=== PATIENT | male | born 1965 | race Caucasian/White ===

== ENCOUNTER 2017-02-07 10:37 | Emergency (ER) | payer OTHER, BC ==
[~2017-02-07] VITALS: Ht 182.9 cm; Wt 81.6 kg
[~2017-02-07 10:37] MED LIST: AMLODIPINE10 MG PO; DULOXETINE 30MG30 MG FT; KEFLEX500 M1 PO; LEVITRA20 MG PO; MELOXICAM15 MG PO; PRINIVIL10 MG PO; ZOCOR20 MG PO
--- OUTSIDE RECORDS SUMMARY | 2017-02-07 10:54 | External Medical Summary Rpt ---
Author Author KANDIS Watkins, KANDIS Watkins Organization [employer] Address Unknown Phone Unavailable
--- OUTSIDE RECORDS SUMMARY | 2017-02-07 10:54 | External Medical Summary Rpt | CCD ---
Author Author , KANDIS MARQUIS Address Unknown Phone [email or web address] Purpose Continuity of Care Document - through 2016 Problems Code Diagnosis DOS Provider Status G40.909 Epilepsy, unspecified , not intractable , without status epilepticus
--- OUTSIDE RECORDS SUMMARY | 2017-02-07 10:54 | External Medical Summary Rpt | CCD ---
Author Author , KANDIS MARQUIS Address Unknown Phone [email or web address] Purpose Continuity of Care Document - through 2016 Problems Code Diagnosis DOS Provider Status G40.909 Epilepsy, unspecified , not intractable , without status epilepticus
--- OUTSIDE RECORDS SUMMARY | 2017-02-07 10:54 | External Medical Summary Rpt | CCD ---
Author Author [employer] Organization [employer] Address Unknown Phone Unavailable Purpose Continuity of Care Document - through 2016
--- OUTSIDE RECORDS SUMMARY | 2017-02-07 10:54 | External Medical Summary Rpt | CCD ---
Author Author , KANDIS MARQUIS Address Unknown Phone [email or web address] Immunization Name Date Rout CVX Reac Dose Comm Prov Is Faci e tion ent ider Refu lity Give sed n Tdap 02-0 115 999 Hist H201 No H201 , 5-20 oric Adso 15 al rbed Info rmat ion - Sour ce Unsp ecif ied Td 02-0 9 999 Hist H201 No H201 (julissa 9-20 oric lt), 09 al Info adso rmat rbed ion - Sour ce Unsp ecif ied Hep 09-1 43 999 Hist H181 No H181 B, 1-20 oric adul 03 al t Info rmat ion - Sour ce Unsp ecif ied Hep 01-2 43 999 Hist H201 No H201 B, 1-20 oric adul 03 al t Info rmat ion - Sour ce Unsp ecif ied Hep 12-1 43 999 Hist H201 No H201 B, 9-20 oric adul 02 al t Info rmat ion - Sour ce Unsp ecif ied Td 08-2 9 999 Hist H201 No H201 (julissa 4-20 oric lt), 00 al Info adso rmat rbed ion - Sour ce Unsp ecif ied
--- OUTSIDE RECORDS SUMMARY | 2017-02-07 10:54 | External Medical Summary Rpt | CCD ---
Author Author , KANDIS MARQUIS Address Unknown Phone [email or web address] Immunization Name Date Rout CVX Reac Dose [...]
--- NOTE | 2017-02-07 11:41 | Urgent Treatment Center Report ---
History of Present Issue Date/Time Seen by Provider 02/07/17 1137 Visit Reason Pt arrived:Walked Presenting Problem:PT WAS PULLING ON A DOOR AT WORK AND FELL AND INJURED HIS RIGHT SHOULDER AND WRIST Location if Accident: Onset of symptoms date/time:/ or onset unknown for:MEDICAL HX UNKNOWN Have you (or family members/close friends) recently traveled outside the [place]? N If Yes, where/when: Have you had exposure to infectious disease within the past month? TB? Other? Specify: accompanied by boss c/o right wrist and shoulder pain. Reports while at work this morning, was pulling on a door handle that was jammed when the door opened, throwing him backwards. He believes he put his right arm behind him in attempts to catch himself. No treatment since happened. Pain 08/02. Denies any medication, including ibuprofen. "I don't need anything". Denies N/T. Limited ROM right shoulder and right wrist due to pain. Hx of "tendon damage" right wrist w/ unknown surgery. Source patient Exam Limitations clinical condition (pain, refusing pain medication) ALLERGIES Coded Allergies: No Known Allergies (08/14/16) Home Medications Reported Medications Duloxetine Hcl (Duloxetine 30MG Capsule) 30 MG FT DAILY Amlodipine Besylate (Amlodipine) 10 MG PO DAILY Meloxicam (Meloxicam 15MG) 15 MG PO BID History Medical History General CAD? No Angina: No PA: No Hypertension? Yes Hyperlipidemia? Yes CHF? No DVT? No PE? No COPD? Yes Asthma? No Anemia? No GERD? No Gastric ulcers? No GI Bleed? No Hernia? No Thyroid Problems? No Hypothyroidism? No CVA? No Seizures? No Diabetes? No Renal Insuffiency? No UTI? No Stones? No BPH? No GB Disease: No Nephritic Syndrome? No Asplenia? No Hepatitis? No Sickle Cell Disease? No Arthritis? Yes Migraines? No Cataracts? No Glaucoma? No MRSA? No HIV? No TB? No Anxiety? No Depression? No Cancer? Yes Site: SKIN CA L EAR More? No Immunization HX DT/Tetanus 1-4 Years Ago Surgical Hx Previous Surgery?Y ARM EYE PROCEDURES L EAR SKIN CA REMOVED Social History Smoking Hx Smoker: Current Every Day Smoker Tobacco: Yes Type Cigarettes Packs/day 1 1/2 - 2 Packs Alcohol Alcohol: Yes Review of Systems All Other Systems Reviewed and Negative Musculoskeletal see HPI, denies back pain, denies neck pain, denies other (no head injury/LOC) Skin denies change in color, lesions (right hand x 2 "they are fine") Psychiatric/Neurological see HPI Physical Exam Vital Signs Vital Signs Date Time Temp Pulse Resp B/P Pulse O2 O2 Flow FiO2 Ox Delivery Rate 02/07 1043 98.4 65 16 151/85 98 General Appearance normal appearance, no apparent distress Respiratory Status No: respiratory distress. Cardiovascular no peripheral edema Peripheral Pulses Pulses normal Yes (radial) Back gait normal Extremities normal range of motion (right elbow and rt digits), normal inspection (rt shoulder), limited range of motion (right shoulder & rt wrist), swelling (right radial wrist), tenderness right lateral wrist, anterior shoulder primarily around AC joint Strength 3 Upper Ext (L), 5 Upper Ext (R) Neurologic alert, no motor/sensory deficits, oriented x 3 Mental status normal mood/affect Skin puncture wound right mid proximal palm & <0.5cm superficial skin tear right thumb, palmar surface. Both w/ minimal bleeding., REPORTS last tetanus 1-3 years ago Medical Decision Making LABS/Meds/Orders Pt receiving controlled substance in ED? No Results/Orders Laboratory Tests 02/07/17 1215: Alcohols 0 Orders Procedure Date/time Status STABILIZE JOINT 02/07 1349 Active [facility] WOUND CARE 02/07 1253 Active ALCOHOL 02/07 1154 Complete XRAY/CT/US XRAY/CT/US XRAY hand (right, includes wrist), shoulder (right) XR interpretation by reviewed by me, discussed w/radiologist (read report) Xray Results no acute findings Progress [facility] Progress Notes 1 Date 02/07/17 Time 1242 Comment ER MD not available to review xrays. [facility] Progress Notes 2 Date 02/07/17 Time 1317 Comment ER MD remains unavailable to review xrays. Dr. Rivera, radiologist, will have a look at xrays momentarily. Departure Departure Time of Disposition 1350 Disposition DC Home or Self Care(routine) Clinical Impression Primary Impression: Sprain of right shoulder joint Qualifiers: Encounter type: initial encounter Shoulder sprain type: unspecified sprain Qualified Code: S43.401A - Unspecified sprain of right shoulder joint, initial encounter Secondary Impressions: Puncture wound of right hand without complication Qualifiers: Encounter type: initial encounter Qualified Code: S61.431A - Puncture wound without foreign body of right hand, initial encounter Right wrist sprain Qualifiers: Encounter type: initial encounter Qualified Code: S63.501A - Unspecified sprain of right wrist, initial encounter Skin tear of right hand without complication Qualifiers: Encounter type: initial encounter Qualified Code: S61.411A - Laceration without foreign body of right hand, initial encounter Condition STABLE Referrals Raji Meehan MD Call today and schedule follow up appt for later this week or first of next week. Will need to be examined and released to return to full duty work. Patient Instructions DI for Puncture Wound, DI for Shoulder Sprain, DI for Wrist Sprain, How To Perform RICE (Rest, Ice, Compress, Elevate), How to Use a Sling Additional Instructions * use and movement as tolerated but refer to light duty instructions on workman' s comp form until follow up and cleared by ortho. * Rest * ice 15-20 mins 3-4 times a day * wrist splint and sling for support and swelling unless in shower. Be sure not too tight but not too loose either * Elevate as discussed as much as possible to help reduce swelling and therefore , pain * Ibuprofen every 6 hours as needed for pain and inflammation. If you need something more, you can take tylenol every 4 hours as needed as long as your primary care provider has told you it is ok to take both. * follow up with ortho before returning to work. * for wounds, clean w/ mild soap and water. Apply triple antibiotic ointment as needed. Seek FU for any redness, swelling, drainage, heat around wound. Keep covered if out in public but open to air when at home. Discharge Counseling Counseled pt/family regarding diagnosis, test results, medications/RX, home care, follow up needs at 1357
--- NOTE | 2017-02-07 13:25 | RADIOLOGY REPORT PS360 ---
[id number] VIEWS HISTORY: Pain following injury WC INJURY, DOOR OFF HINGES ORDERING PHYSICIAN: POLLY HURTADO APRN PATIENT AGE: 52 years COMPARISON: None FINDINGS: No fracture or dislocation. No lytic or blastic change. There is normal mineralization. The joint spaces are well-preserved. No significant degenerative/arthritic changes. No erosive changes evident. IMPRESSION: Negative, no acute finding
--- NOTE | 2017-02-07 13:27 | RADIOLOGY REPORT PS360 ---
HAND-RT 3 VIEWS HISTORY: Pain following injury WC INJURY, DOOR OFF HINGES ORDERING PHYSICIAN: POLLY HURTADO APRN PATIENT AGE: 52 years COMPARISON: None FINDINGS: No acute fracture or dislocation is evident. There is an old fracture the distal radius with a bone plate present posteriorly and multiple screws. Small lucency is present in the distal aspect of the navicular nonspecific benign-appearing IMPRESSION: No acute finding. Old distal radial fracture status post ORIF
[2017-02-07 13:57] VITALS: BP 151/85
== END 2017-02-07 14:03 | disposition home or self-care (01) ==
LOC: UTC 10:37 → ER 10:37 → UTC 10:49
DX: S43.401A Unspecified sprain of right shoulder joint, initial encounter (principal); S63.501A Unspecified sprain of right wrist, initial encounter; S61.411A Laceration without foreign body of right hand, initial encounter; S61.431A Puncture wound without foreign body of right hand, initial encounter; W18.39XA Other fall on same level, initial encounter; Y93.89 Activity, other specified; Y92.89 Other specified places as the place of occurrence of the external cause; Y99.0 Civilian activity done for income or pay; I10 Essential (primary) hypertension; J44.9 Chronic obstructive pulmonary disease, unspecified; F17.210 Nicotine dependence, cigarettes, uncomplicated; Z85.828 Personal history of other malignant neoplasm of skin; Z79.899 Other long term (current) drug therapy

== ENCOUNTER 2017-02-09 12:22 | Emergency (ER) | payer OTHER ==
[~2017-02-09] VITALS: Ht 182.9 cm; Wt 79.4 kg
--- NOTE | 2017-02-09 12:46 | Emergency Room Report ---
History of Present Illness Time Seen by [email or web address] Presenting Problem in Triage Pt arrived:Walked Presenting Problem:SEEN IN [facility] AND DIAGNOSED WITH RIGHT SHOULDER STRAIN A COUPLE DAYS PRIOR AFTER A WORK RELATED ACCIDENT. CONTINUES TO HAVE PAIN. WANTS A CT SCAN OR SOMETHING DONE BECAUSE "SOMETHING ELSE IS WRONG WITH IT" Onset of symptoms date/time:02/07/17 or onset unknown for: Treatment Prior to Arrival: XRAYED AND SEEN BY PRODUCTION BROACHING MACHINE OPERATOR RIM ROLLER OPERATOR IN THIS ED RIM ROLLER OPERATOR Provided by:PHYSICIAN Sepsis Risk Assessment: Temp: 97.0 B/P: MAP: Pulse: 68 Resp: 18 Recent fever? N Clinical Suspician of Infection? N Mental Status: 1 - Regular (Normal Baseline) Sepsis Risk:Low Sepsis Risk Have you (or family members/close friends) recently traveled outside the [place]? N If Yes, where/when: Have you had exposure to infectious disease within the past month? TB? Other? Specify: Comment The patient was seen in the urgent treatment center on Tuesday for a RIGHT shoulder and RIGHT wrist injury. He did not have any fractures, but he has several concerns. He says that he was told that he might need further testing, but cannot get an appointment to see Dr. Meehan for orthopedic follow-up until Tuesday one week from today and wonders whether additional testing can be done today. He also says that he was not given anything for pain and could not sleep last night. He is artery on tramadol and meloxicam for back pain and it is not helping. He also says that he was given work restrictions for light duty and no driving, nobody else in his family drives and he is not able to get to work. He drove himself to work today but could not do anything at work because of his pain and lack of availability of other accommodations for light duty. He does not think he will be able to work until he sees Dr. Meehan. ALLERGIES Coded Allergies: No Known Allergies (02/09/17) Home Medications Reported Medications Duloxetine Hcl (Duloxetine 30MG Capsule) 30 MG FT DAILY Amlodipine Besylate (Amlodipine) 10 MG PO DAILY Meloxicam (Meloxicam 15MG) 15 MG PO BID History Medical History General CAD? No Angina: No NC: No Hypertension? Yes Hyperlipidemia? Yes CHF? No DVT? No PE? No COPD? Yes Asthma? No Anemia? No GERD? No Gastric ulcers? No GI Bleed? No Hernia? No Thyroid Problems? No Hypothyroidism? No CVA? No Seizures? No Diabetes? No Renal Insuffiency? No End Stage Renal Disease? No UTI? No Stones? No BPH? No GB Disease: No Nephritic Syndrome? No Asplenia? No Hepatitis? No Sickle Cell Disease? No Arthritis? Yes Migraines? No Cataracts? No Glaucoma? No MRSA? No HIV? No TB? No Anxiety? No Depression? No Cancer? Yes Site: SKIN CA L EAR More? No Immunization Hx Ped.Immunizations UTD Yes DT/Tetanus 1-4 Years Ago Surgical Hx Previous Surgery?Y ARM EYE PROCEDURES L EAR SKIN CA REMOVED Social History Smoking Hx Smoker: Current Every Day Smoker Tobacco: Yes Type Cigarettes Packs/day 1 1/2 - 2 Packs Alcohol Alcohol: Yes Review of Systems All Other Systems Reviewed and Negative Musculoskeletal joint pain Psychiatric/Neurological denies numbness, denies weakness Physical Exam Vital Signs Vital Signs Date Time Temp Pulse Resp B/P Pulse O2 O2 Flow FiO2 Ox Delivery Rate 02/09 1315 97.0 68 18 142/88 94 02/09 1232 97.0 68 18 94 General Appearance no apparent distress Respiratory Status No: respiratory distress. Cardiovascular regular rate/rhythm, normal peripheral pulses Extremities RIGHT wrist brace, RIGHT arm sling. I cannot elicit any tenderness of the shoulder, but complains of pain with range of motion including internal/ external rotation and abduction. He will only abduct approximately 30 degrees. Neurologic alert, no motor/sensory deficits Medical Decision Making LABS/Meds/Orders Pt receiving controlled substance in ED? Yes James was queried for this patient? Yes Comment [id number] rxs. last rx tramadol on 01/21/17. Progress - I do not feel that a CT scan is indicated. I advised him that an MRI would need to be ordered by Dr. Meehan as an outpatient. This is not available in the emergency department. I advised him that I could prescribe him a limited supply of pain medication to use instead of tramadol. I will provide a work release. Departure Departure Disposition DC Home or Self Care(routine) Clinical Impression Primary Impression: Right shoulder strain Qualifiers: Encounter type: initial encounter Qualified Code: S46.911A - Strain of unspecified muscle, fascia and tendon at shoulder and upper arm level, right arm, initial encounter Condition STABLE Patient Instructions DI for Shoulder Sprain Additional Instructions Off work until seen by Dr. Meehan on 02/16/17. Continue sling and a wrist brace. Follow-up with Dr. Meehan as scheduled. Do not take tramadol while taking [place]. Prescriptions Current Visit Scripts HYDROCODONE/ACETAMINOPHEN ([place] 5-325 Tablet) 1 TAB PO Q6HP PRN pain #10 TAB ED Critical Care Critical Care No at 8122
--- NOTE | 2017-02-09 12:46 | Emergency Room Report ---
History of Present Illness Time Seen by [email or web address] Presenting Problem in Triage Pt arrived:Walked Presenting Problem:SEEN IN [facility] AND DIAGNOSED WITH RIGHT SHOULDER STRAIN A COUPLE DAYS PRIOR AFTER A WORK RELATED ACCIDENT. CONTINUES TO HAVE PAIN. WANTS A CT SCAN OR SOMETHING DONE BECAUSE "SOMETHING ELSE IS WRONG WITH IT" Onset of symptoms date/time:02/07/17 or onset unknown for: Treatment Prior to Arrival: XRAYED AND SEEN BY DIRECTOR OF UNDERGRADUATE ADMISSIONS RESEARCH & ANALYTICS MANAGER IN THIS ED RESEARCH & ANALYTICS MANAGER Provided by:PHYSICIAN Sepsis Risk Assessment: Temp: 97.0 B/P: MAP: Pulse: 68 Resp: 18 Recent fever? N Clinical Suspician of Infection? N Mental Status: 1 - Regular (Normal Baseline) Sepsis Risk:Low Sepsis Risk Have you (or family members/close friends) recently traveled outside the [place]? N If Yes, where/when: Have you had exposure to infectious disease within the past month? TB? Other? Specify: Comment The patient was seen in the urgent treatment center on Tuesday for a RIGHT shoulder and RIGHT wrist injury. He did not have any fractures, but he has several concerns. He says that he was told that he might need further testing, but cannot get an appointment to see Dr. Meehan for orthopedic follow-up until Tuesday one week from today and wonders whether additional testing can be done today. He also says that he was not given anything for pain and could not sleep last night. He is artery on tramadol and meloxicam for back pain and it is not helping. He also says that he was given work restrictions for light duty and no driving, nobody else in his family drives and he is not able to get to work. He drove himself to work today but could not do anything at work because of his pain and lack of availability of other accommodations for light duty. He does not think he will be able to work until he sees Dr. Meehan. ALLERGIES Coded Allergies: No Known Allergies (02/09/17) Home Medications Reported Medications Duloxetine Hcl (Duloxetine 30MG Capsule) 30 MG FT DAILY Amlodipine Besylate (Amlodipine) 10 MG PO DAILY Meloxicam (Meloxicam 15MG) 15 MG PO BID History Medical History General CAD? No Angina: No [place]: No Hypertension? Yes Hyperlipidemia? Yes CHF? No DVT? No PE? No COPD? Yes Asthma? No Anemia? No GERD? No Gastric ulcers? No GI Bleed? No Hernia? No Thyroid Problems? No Hypothyroidism? No CVA? No Seizures? No Diabetes? No Renal Insuffiency? No End Stage Renal Disease? No UTI? No Stones? No BPH? No GB Disease: No Nephritic Syndrome? No Asplenia? No Hepatitis? No Sickle Cell Disease? No Arthritis? Yes Migraines? No Cataracts? No Glaucoma? No MRSA? No HIV? No TB? No Anxiety? No Depression? No Cancer? Yes Site: SKIN CA L EAR More? No Immunization Hx Ped.Immunizations UTD Yes DT/Tetanus 1-4 Years Ago Surgical Hx Previous Surgery?Y ARM EYE PROCEDURES L EAR SKIN CA REMOVED Social History Smoking Hx Smoker: Current Every Day Smoker Tobacco: Yes Type Cigarettes Packs/day 1 1/2 - 2 Packs Alcohol Alcohol: Yes Review of Systems All Other Systems Reviewed and Negative Musculoskeletal joint pain Psychiatric/Neurological denies numbness, denies weakness Physical Exam Vital Signs Vital Signs Date Time Temp Pulse Resp B/P Pulse O2 O2 Flow FiO2 Ox Delivery Rate 02/09 1315 97.0 68 18 142/88 94 02/09 1232 97.0 68 18 94 General Appearance no apparent distress Respiratory Status No: respiratory distress. Cardiovascular regular rate/rhythm, normal peripheral pulses Extremities RIGHT wrist brace, RIGHT arm sling. I cannot elicit any tenderness of the shoulder, but complains of pain with range of motion including internal/ external rotation and abduction. He will only abduct approximately 30 degrees. Neurologic alert, no motor/sensory deficits Medical Decision Making LABS/Meds/Orders Pt receiving controlled substance in ED? Yes James was queried for this patient? Yes Comment [id number] rxs. last rx tramadol on 01/21/17. Progress - I do not feel that a CT scan is indicated. I advised him that an MRI would need to be ordered by Dr. Meehan as an outpatient. This is not available in the emergency department. I advised him that I could prescribe him a limited supply of pain medication to use instead of tramadol. I will provide a work release. Departure Departure Disposition DC Home or Self Care(routine) Clinical Impression Primary Impression: Right shoulder strain Qualifiers: Encounter type: initial encounter Qualified Code: S46.911A - Strain of unspecified muscle, fascia and tendon at shoulder and upper arm level, right arm, initial encounter Condition STABLE Patient Instructions DI for Shoulder Sprain Additional Instructions Off work until seen by Dr. Meehan on 02/16/17. Continue sling and a wrist brace. Follow-up with Dr. Meehan as scheduled. Do not take tramadol while taking [place]. Prescriptions Current Visit Scripts HYDROCODONE/ACETAMINOPHEN ([place] 5-325 Tablet) 1 TAB PO Q6HP PRN pain #10 TAB ED Critical Care Critical Care No at 0640
--- OUTSIDE RECORDS SUMMARY | 2017-02-09 12:53 | External Medical Summary Rpt | CCD ---
Demographics Preferred Language Hebrew Marital Status Unknown Shinto Affiliation Unknown Race Unknown Ethnic Group Unknown Author Author , KANDIS MARQUIS Address Unknown Phone Immunization Unable to retrieve immunization data due to connection failure with Immunization Registry. Please try again later.
--- OUTSIDE RECORDS SUMMARY | 2017-02-09 12:53 | External Medical Summary Rpt | CCD ---
Author Author , KANDIS MARQUIS Address Unknown Phone [email or web address] Purpose Continuity of Care Document - 02-07-2017 through 2016 Results Labs Lab Lab Date Result Refere Interp Status Commen Order Detail nces retati t Range on Serum or plasma ethanol measurement (mas (02-07-2017 12:15) Serum 02-07-2 = 0 0-99 complet or 017 mg/dL ed plasma 12:15 ethanol measure ment ([facility] Comment: ANY ALCOHOL > OR = 80 MG/DL IS CONSIDERED LEGALLY Comment: INTOXICATED UNDER [place] STATE LAW.
--- OUTSIDE RECORDS SUMMARY | 2017-02-09 12:53 | External Medical Summary Rpt | CCD ---
Author Author , KANDIS MARQUIS Address Unknown Phone [email or web address] Purpose Continuity of Care Document - 02-07-2017 through 2016 Results Labs Lab Lab Date Result Refere Interp Status Commen Order Detail nces retati t Range on Serum or plasma ethanol measurement (mas (02-07-2017 12:15) Serum 02-07-2 = 0 0-99 complet or 017 mg/dL ed plasma 12:15 ethanol measure ment ([facility] Comment: ANY ALCOHOL > OR = 80 MG/DL IS CONSIDERED LEGALLY Comment: INTOXICATED UNDER [place] STATE LAW.
--- OUTSIDE RECORDS SUMMARY | 2017-02-09 12:53 | External Medical Summary Rpt ---
Author Author KANDIS Watkins, [employer] Organization [employer] Address Unknown Phone Unavailable Results Ethanol [Mass/volume] in Serum or Plasma Observa Value Referen Units Interpr Notes Date tion ce etation Range Ethanol 0 - 99 mg/dL Normal ANY Feb 07 [Mass/vol ALCOHOL > 2017 ume] in OR = 80 12:15 PM Serum or MG/DL IS Plasma CONSIDERE D LEGALLYIN TOXICATED UNDER [place] STATE LAW.
--- OUTSIDE RECORDS SUMMARY | 2017-02-09 12:53 | External Medical Summary Rpt | CCD ---
Demographics Preferred Language Nepali Marital Status Unknown Buddhism Affiliation Unknown Race Unknown Ethnic Group Unknown Author Author , KANDIS MARQUIS Address Unknown Phone Immunization Unable to retrieve immunization data due to connection failure with Immunization Registry. Please try again later.
[2017-02-09] MEDS ORDERED: NORCO 325 MG-51 TAB PO (13:03)
[2017-02-09 13:15] VITALS: BP 142/88
== END 2017-02-09 13:16 | disposition home or self-care (01) ==
LOC: ER 12:22
DX: S46.911D Strain of unspecified muscle, fascia and tendon at shoulder and upper arm level, right arm, subsequent encounter (principal); X58.XXXD Exposure to other specified factors, subsequent encounter; I10 Essential (primary) hypertension; J44.9 Chronic obstructive pulmonary disease, unspecified; Z85.828 Personal history of other malignant neoplasm of skin; F17.210 Nicotine dependence, cigarettes, uncomplicated; Z79.899 Other long term (current) drug therapy